=== PATIENT | female | born 1985 | race Caucasian/White ===

== ENCOUNTER → 2021-05-02 08:05 | Outpatient (CLI) | payer BC, SELFPAY ==
[2021-05-02 09:06] LABS: Basophils # 0.1 K/mm3 (0-0.2); Basophils % 1.5 % (0.1-2.0); Eosinophils # 0.1 K/mm3 (0.0-0.4); Eosinophils % 3.1 % (0.1-12.0); Hemoglobin 14.5 g/dL (12.2-16.2); Lymphocytes # 1.8 K/mm3 (0.7-4.5); Lymphocytes % 43.3 % (10-50); Mean Corpuscular HGB Conc 32.2 g/dL (31.8-35.4); Mean Corpuscular Hemoglobin 30.3 pg (27.0-31.2); Mean Corpuscular Volume 94.1 fl (81-99); Mean Platelet Volume 8.9 fl (7.4-10.4); Monocytes # 0.2 K/mm3 (0.1-1.0); Monocytes % 4.2 % (1.7-9.3); Neutrophils % 47.8 % (37.0-80.0); Platelet Count 186 K/mm3 (142-424); Red Blood Count 4.78 M/mm3 (4.20-5.40); Red Cell Distribution Width 13.4 % (11.5-17.5); White Blood Count 4.1 K/mm3 (4.8-10.8)
[2021-05-02 09:25] LABS: Alanine Aminotransferase 29 U/L (12-78); Albumin Level 4.5 g/dl (3.5-5.0); Albumin/Globulin Ratio 1.8 (1.1-1.8); Alkaline Phosphatase 40 U/L (38-126); Anion Gap 10.1 mEq/L (5-15); Aspartate Amino Transferase 26 U/L (14-36); Blood Urea Nitrogen 11 mg/dl (7-17); Carbon Dioxide 30 mmol/L (22.0-30.0); Chloride 102 mmol/L (98-107); Estimated Glomerular Filt Rate 95 ml/min (>60); GFR (African American) 115 ML/MIN (>60); Globulin 2.5 g/dL (1.3-3.2); Glucose 86 mg/dl (74-100); Potassium 4.1 mmoL/L (3.5-5.1); Sodium 138 mmol/L (136-145)
[2021-05-02 09:30] LABS: C-Reactive Protein 2.7 mg/L (0-4)
[2021-05-02 09:42] LABS: 25-OH Vitamin D, Total 44.5 ng/mL (30-100)
[2021-05-02 09:57] LABS: Thyroid Stimulating Hormone 2.65 uIU/mL (0.465-4.68)
[2021-05-02 10:08] LABS: Hemoglobin A1C 4.7 % (4.0-6.0)
[2021-05-02 10:15] LABS: Vitamin B12 994 pg/mL (239-931)
[2021-05-02 10:43] LABS: Iron 93 ug/dL (37-170)
[2021-05-04 16:15] LABS: T4 (Thyroxine) 7.4 ug/dl (5.53-11.0)
[2021-05-04 17:09] LABS: Antinuclear Antibodies, IFA Negative (.)
== END ==
PROVIDERS: PCP Family Medicine; Visit Provider Family Medicine
DX: R63.1 Polydipsia (principal); R63.4 Abnormal weight loss; L65.9 Nonscarring hair loss, unspecified; R76.8 Other specified abnormal immunological findings in serum; E66.9 Obesity, unspecified; Z68.32 Body mass index [BMI] 32.0-32.9, adult
CPT/HCPCS: 36415; 80053; 82306; 82607; 83036; 83540; 84436; 84439; 84443; 85025; 86038; 86140